=== PATIENT | male | born 1955 | race Caucasian/White ===

== ENCOUNTER 2017-12-17 01:53 | Emergency (ER) | payer BC ==
[2017-12-17] MEDS ORDERED: Lidocaine 2% Viscous Solution 15 ML Cup PO ONE (01:54)
[2017-12-17] MEDS ORDERED: Benzocaine 20% Topical Spray UD MUCMEM ONE (01:54)
--- NOTE | 2017-12-17 02:13 | EDM.PDOC ---
ED HPI GENERAL MEDICAL PROBLEM - General Chief Complaint: General Stated Complaint: TOOTH PAIN Time Seen by Provider: 12/17/17 01:56 - History of Present Illness INITIAL COMMENTS - FREE TEXT/NARRATIVE: HISTORY AND PHYSICAL: History of present illness: The patient is a 62-year-old male who presents with complaints of dental pain to his lower front teeth that started about 4-5 days ago and he scheduled an appointment with the dentist this Friday, 2-1/2 days from now. He presents because he is been taking [id number] ibuprofen and he says he can't take the pain. He feels that the gum is swollen and his glands in his neck are swollen and he is here for evaluation. The patient denies any systemic complaints of fever chills nausea vomiting headache or neck pain Review of systems: As per history of present illness and below otherwise all systems reviewed and negative. Past medical history: As per history of present illness and as reviewed below otherwise noncontributory. Surgical history: As per history of present illness and as reviewed below otherwise noncontributory. Social history: No reported history of drug or alcohol abuse. Family history: As per history of present illness and as reviewed below otherwise noncontributory. Physical exam: Gen.: Well-developed well-nourished man is nontoxic and vital signs were noted by me HEENT: Atraumatic, normocephalic, pupils reactive, negative for conjunctival pallor or scleral icterus, mucous membranes moist, throat clear, neck supple, nontender, trachea midline. There is no nuchal rigidity and there is some shoddy anterior cervical adenopathy. There is movable areas of dental disease and tooth loss the most noteworthy is near the right lower front teeth with dental disease at tooth #26 and swelling of the gum around where tooth 25 should be, although it is missing, tooth 26 and tooth 27. There is no facial swelling appreciated. Lungs: Clear to auscultation, breath sounds equal bilaterally, chest nontender. Heart: S1S2, regular rate and rhythm no overt murmurs Abdomen: Deferred Pelvis: Deferred Genitourinary: Deferred. Rectal: Deferred. Extremities: Atraumatic, full range of motion without defects or deficits. Neurovascular unremarkable. Neuro: Awake, alert, oriented. Cranial nerves II through XII unremarkable. Cerebellum unremarkable. Motor and sensory unremarkable throughout. Exam nonfocal. Diagnostics: [] Therapeutics: Dental balls Patient asked me for something nonnarcotic for pain and specifically requested ibuprofen 800 mg as he says this larger pill does not irritate his stomach as much as the [id number] ibuprofen does. I will also give dental balls and amoxicillin for home. Impression: Dental disease/dental pain/dental infection Definitive disposition and diagnosis as appropriate pending reevaluation and review of above. 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 [No Known Home Meds] 12/17/17 [History] ED ROS GENERAL - Review of Systems Review Of Systems: ROS reveals no pertinent complaints other than HPI. ED EXAM, GENERAL - Physical Exam Exam: See Below (See dictation) Course - Vital Signs Last Recorded V/S: Last Vital Signs Temp 36.7 C 12/17/17 02:03 Pulse 89 12/17/17 02:03 Resp 18 12/17/17 02:03 BP 153/86 H 12/17/17 02:03 Pulse Ox 96 12/17/17 02:03 - Orders/Labs/Meds Meds: Medications Discontinued Medications Generic Name Dose Route Start Last Admin Trade Name Buster PRN Reason Stop Dose Admin Benzocaine 2 each 12/17/17 01:54 Hurricaine One 20% MUCMEM 12/17/17 01:55 ONETIME ONE Lidocaine HCl 15 ml 12/17/17 01:54 Xylocaine 2% Viscous PO 12/17/17 01:55 ONETIME ONE Departure - Departure Time of Disposition: 02:12 Disposition: Home, Self-Care 01 Condition: Good Clinical Impression: Pain, dental, Dental infection - Discharge Information Referrals: PCP,None [Primary Care Provider] - Additional Instructions: The following information is given to patients seen in the emergency department who are being discharged to home. This information is to outline your options for follow-up care. We provide all patients seen in our emergency department with a follow-up referral. The need for follow-up, as well as the timing and circumstances, are variable depending upon the specifics of your emergency department visit. If you don't have a primary care physician on staff, we will provide you with a referral. We always advise you to contact your personal physician following an emergency department visit to inform them of the circumstance of the visit and for follow-up with them and/or the need for any referrals to a consulting specialist. The emergency department will also refer you to a specialist when appropriate. This referral assures that you have the opportunity for followup care with a specialist. All of these measure are taken in an effort to provide you with optimal care, which includes your followup. Under all circumstances we always encourage you to contact your private physician who remains a resource for coordinating your care. When calling for followup care, please make the office aware that this follow-up is from your recent emergency room visit. If for any reason you are refused follow-up, please contact the [facility] emergency department at and ask to speak to the emergency department charge nurse. [facility] Primary care- Internal Medicine and Family [address] [address] Use ice to face for any swelling that occurs and take medications as prescribed , ibuprofen 800 mg every 8 hours and amoxicillin as prescribed [facility] Meds. Please keep your appointment on Friday with the dentist and return to ER as needed and as discussed
== END 2017-12-17 02:30 | disposition home or self-care (01) ==
LOC: MW.ED 01:53
DX: K08.89 Other specified disorders of teeth and supporting structures (principal)
CPT/HCPCS: 99282; A9270

== ENCOUNTER 2018-04-07 19:43 | Emergency (ER) | payer BC ==
[2018-04-07] MEDS ORDERED: Ketorolac 60 MG/2 ML SDV IM ONE (20:14)
--- NOTE | 2018-04-07 20:31 | EDM.PDOC ---
ED HPI GENERAL MEDICAL PROBLEM - General Chief Complaint: General Stated Complaint: HAVEING PAIN IN HIS MOUTH Time Seen by Provider: 04/07/18 19:46 Source of Information: Reports: Patient History Limitations: Reports: No Limitations - History of Present Illness INITIAL COMMENTS - FREE TEXT/NARRATIVE: HISTORY AND PHYSICAL: History of present illness: [Carlos is a 63-year-old male here with complaint of dental pain. He reports he has had this before, needs to get some teeth pulled. He denies any fevers, chills, chest pain, headache, vomiting, diarrhea, abdominal pain. ] Review of systems: As per history of present illness and below otherwise all systems reviewed and negative. Past medical history: As per history of present illness and as reviewed below otherwise noncontributory. Surgical history: As per history of present illness and as reviewed below otherwise noncontributory. Social history: No reported history of drug or alcohol abuse. Family history: As per history of present illness and as reviewed below otherwise noncontributory. Physical exam: General: patient sitting comfortably in no acute distress HEENT: Poor dentition throughout. Tenderness to percussion of right upper 1st molar. Small abscess noted between 1st and 2nd molars. Atraumatic, normocephalic, pupils reactive, negative for conjunctival pallor or scleral icterus, mucous membranes moist, throat clear Lungs: Clear to auscultation, breath sounds equal bilaterally, chest nontender.er, trachea Heart: S1S2, regular, negative for clicks, rubs, or JVD. Neuro: Awake, alert, oriented. Cranial nerves II through XII unremarkable. Cerebellum unremarkable. Motor and sensory unremarkable throughout. Exam nonfocal. Notes: Diagnostics: [] Therapeutics: [Toradol 60mg IM] Amoxicillin Impression: [Dental abscess] Plan: [#1 Take antibiotic as directed #2 Take ibuprofen as needed for pain #3 Follow up with PCP #4 Return to ED as needed as discussed ] Definitive disposition and diagnosis as appropriate pending reevaluation and review of above. right upper and lower molar Pain Score (Numeric/FACES): 7 - Related Data Allergies Allergy/AdvReac Type Severity Reaction Status Date / Time No Known Allergies Allergy Verified 04/07/18 20:02 Home Meds: Home Meds Amoxicillin 500 mg PO TID 10 Days #30 tab 04/07/18 [Rx] Ibuprofen [Ibu] 800 mg PO Q6HR #20 tablet 04/07/18 [Rx] Past Medical History HEENT History: Reports: None Other HEENT History: wears glasses Cardiovascular History: Reports: None Respiratory History: Reports: Asthma Gastrointestinal History: Reports: None Genitourinary History: Reports: None Musculoskeletal History: Reports: None Neurological History: Reports: None Psychiatric History: Reports: Depression Endocrine/Metabolic History: Reports: None Hematologic History: Reports: None Immunologic History: Reports: None Oncologic (Cancer) History: Reports: None Dermatologic History: Reports: None - Infectious Disease History Infectious Disease History: Reports: Chicken Pox, Measles, Mumps - Past Surgical History Head Surgeries/Procedures: Reports: None HEENT Surgical History: Reports: None Respiratory Surgical History: Reports: None Musculoskeletal Surgical History: Reports: Other (See Below) Other Musculoskeletal Surgeries/Procedures:: Knee Surgery Social & Family History - Family History Family Medical History: Noncontributory - Tobacco Use Smoking Status *Q: Current Every Day Smoker Years of Tobacco use: 40 Packs/Tins Daily: 1 - Caffeine Use Caffeine Use: Reports: Coffee, Energy Drinks, Soda Caffeine Use Comment: "a lot" - Recreational Drug Use Recreational Drug Use: No ED ROS GENERAL - Review of Systems Review Of Systems: ROS reveals no pertinent complaints other than HPI. ED EXAM, GENERAL - Physical Exam Exam: See Below (see dictation) Course - Vital Signs Last Recorded V/S: Last Vital Signs Temp 36.4 C 04/07/18 19:55 Pulse 80 04/07/18 20:45 Resp 18 04/07/18 20:45 BP 140/80 04/07/18 20:45 Pulse Ox 98 04/07/18 20:45 - Orders/Labs/Meds Meds: Medications Discontinued Medications Generic Name Dose Route Start Last Admin Trade Name Freq PRN Reason Stop Dose Admin Ketorolac Tromethamine 60 mg 04/07/18 20:14 04/07/18 20:20 Toradol IM 04/07/18 20:15 60 mg ONETIME ONE Administration Departure - Departure Time of Disposition: 20:29 Disposition: Home, Self-Care 01 Condition: Good Clinical Impression: Pain, dental, Dental infection - Discharge Information Prescriptions: Ibuprofen [Ibu] 800 mg PO Q6HR #20 tablet Amoxicillin 500 mg PO TID 10 Days #30 tab Instructions: Dental Abscess, [id number] Referrals: PCP,None [Primary Care Provider] - Forms: ED Department Discharge Additional Instructions: The following information is given to patients seen in the emergency department who are being discharged to home. This information is to outline your options for follow-up care. We provide all patients seen in our emergency department with a follow-up referral. The need for follow-up, as well as the timing and circumstances, are variable depending upon the specifics of your emergency department visit. If you don't have a primary care physician on staff, we will provide you with a referral. We always advise you to contact your personal physician following an emergency department visit to inform them of the circumstance of the visit and for follow-up with them and/or the need for any referrals to a consulting specialist. The emergency department will also refer you to a specialist when appropriate. This referral assures that you have the opportunity for follow-up care with a specialist. All of these measure are taken in an effort to provide you with optimal care, which includes your follow-up. Under all circumstances we always encourage you to contact your private physician who remains a resource for coordinating your care. When calling for follow-up care, please make the office aware that this follow-up is from your recent emergency room visit. If for any reason you are refused follow-up, please contact the [facility] Emergency Department at and asked to speak to the emergency department charge nurse. [address] [address] #1 Take antibiotic as directed #2 Take ibuprofen as needed for pain #3 Follow up with PCP #4 Return to ED as needed as discussed
== END 2018-04-07 20:45 | disposition home or self-care (01) ==
LOC: MW.ED 19:43
DX: K04.7 Periapical abscess without sinus (principal); F17.210 Nicotine dependence, cigarettes, uncomplicated
CPT/HCPCS: 96372; 99282; J1885; 99283

== ENCOUNTER 2018-04-28 22:41 | Emergency (ER) | payer BC ==
--- NOTE | 2018-04-28 22:53 | EDM.PDOC ---
ED HPI GENERAL MEDICAL PROBLEM - General Stated Complaint: TOOTH PAIN Time Seen by Provider: 04/28/18 22:45 - History of Present Illness INITIAL COMMENTS - FREE TEXT/NARRATIVE: HISTORY AND PHYSICAL: History of present illness: Patient 63-year-old male presents with a concern of dentalgia he's been seen multiple times prior in the ED for the same is yet to secure dental appointment he denies fever chills nausea vomiting or other complaints Review of systems: As per history of present illness and below otherwise all systems reviewed and negative. Past medical history: As per history of present illness and as reviewed below otherwise noncontributory. Surgical history: As per history of present illness and as reviewed below otherwise noncontributory. Social history: No reported history of drug or alcohol abuse. Family history: As per history of present illness and as reviewed below otherwise noncontributory. Physical exam: HEENT: Generally poor dentition with multiple dental caries with secondary fractures gingival edema and multiple tooth loss Atraumatic, normocephalic, pupils reactive, negative for conjunctival pallor or scleral icterus, mucous membranes moist, throat clear, neck supple, nontender, trachea midline. Lungs: Clear to auscultation, breath sounds equal bilaterally, chest nontender. Heart: S1S2, regular, negative for clicks, rubs, or JVD. Abdomen: Soft, nondistended, nontender. Negative for masses or hepatosplenomegaly. Negative for costovertebral tenderness. Pelvis: Stable nontender. Genitourinary: Deferred. Rectal: Deferred. Extremities: Atraumatic, negative for cords or calf pain. Neurovascular unremarkable. Neuro: Awake, alert, oriented. Cranial nerves II through XII unremarkable. Cerebellum unremarkable. Motor and sensory unremarkable throughout. Exam nonfocal. Diagnostics: None Therapeutics: None Impression: #1 dentalgia #2 dental abscess Definitive disposition and diagnosis as appropriate pending reevaluation and review of above. - Related Data Allergies Allergy/AdvReac Type Severity Reaction Status Date / Time No Known Allergies Allergy Verified 04/07/18 20:02 Home Meds: Home Meds Amoxicillin 500 mg PO TID 10 Days #30 tab 04/07/18 [Rx] Ibuprofen [Ibu] 800 mg PO Q6HR #20 tablet 04/07/18 [Rx] Past Medical History HEENT History: Reports: None Other HEENT History: wears glasses Cardiovascular History: Reports: None Respiratory History: Reports: Asthma Gastrointestinal History: Reports: None Genitourinary History: Reports: None Musculoskeletal History: Reports: None Neurological History: Reports: None Psychiatric History: Reports: Depression Endocrine/Metabolic History: Reports: None Hematologic History: Reports: None Immunologic History: Reports: None Oncologic (Cancer) History: Reports: None Dermatologic History: Reports: None - Infectious Disease History Infectious Disease History: Reports: Chicken Pox, Measles, Mumps - Past Surgical History Head Surgeries/Procedures: Reports: None HEENT Surgical History: Reports: None Respiratory Surgical History: Reports: None Musculoskeletal Surgical History: Reports: Other (See Below) Other Musculoskeletal Surgeries/Procedures:: Knee Surgery Social & Family History - Family History Family Medical History: Noncontributory - Caffeine Use Caffeine Use: Reports: Coffee, Energy Drinks, Soda Caffeine Use Comment: "a lot" ED ROS GENERAL - Review of Systems Review Of Systems: ROS reveals no pertinent complaints other than HPI. ED EXAM, GENERAL - Physical Exam Exam: See Below (See dictation) Departure - Departure Time of Disposition: 22:51 Disposition: Home, Self-Care 01 Condition: Good Clinical Impression: Pain, dental, Dental infection - Discharge Information *PRESCRIPTION DRUG MONITORING PROGRAM REVIEWED*: Not Applicable *COPY OF PRESCRIPTION DRUG MONITORING REPORT IN PATIENT ROBERTA: Not Applicable Referrals: PCP,None [Primary Care Provider] - Additional Instructions: The following information is given to patients seen in the emergency department who are being discharged to home. This information is to outline your options for follow-up care. We provide all patients seen in our emergency department with a follow-up referral. The need for follow-up, as well as the timing and circumstances, are variable depending upon the specifics of your emergency department visit. If you don't have a primary care physician on staff, we will provide you with a referral. We always advise you to contact your personal physician following an emergency department visit to inform them of the circumstance of the visit and for follow-up with them and/or the need for any referrals to a consulting specialist. The emergency department will also refer you to a specialist when appropriate. This referral assures that you have the opportunity for followup care with a specialist. All of these measure are taken in an effort to provide you with optimal care, which includes your followup. Under all circumstances we always encourage you to contact your private physician who remains a resource for coordinating your care. When calling for followup care, please make the office aware that this follow-up is from your recent emergency room visit. If for any reason you are refused follow-up, please contact the [facility] emergency department at and asked to speak to the emergency department charge nurse. Augmentin Naprosyn as prescribed follow-up dentist as discussed return as needed as discussed
== END 2018-04-28 23:00 | disposition home or self-care (01) ==
LOC: MW.ED 22:41
DX: K04.7 Periapical abscess without sinus (principal)
CPT/HCPCS: 99282

== ENCOUNTER 2019-03-22 13:26 | Emergency (ER) | payer BC ==
[2019-03-22] MEDS ORDERED: Diphtheria,Pertussis(Acell),Tetanus Vaccine 0.5 ML Syringe IM ONE (14:00)
[2019-03-22] MEDS ORDERED: Lidocaine 1% with EPINEPHrine 1:100,000 20 ML MDV INJECT ONE (14:01)
[2019-03-22] MEDS ORDERED: Bacitracin Oint 1 GM U/D Packet ONE (14:06)
--- NOTE | 2019-03-22 14:07 | EDM.PDOC ---
ED HPI GENERAL MEDICAL PROBLEM - General Chief Complaint: Laceration Stated Complaint: CUT RT LEG Time Seen by Provider: 03/22/19 13:35 - History of Present Illness INITIAL COMMENTS - FREE TEXT/NARRATIVE: HISTORY AND PHYSICAL: History of present illness: Patient 63-year-old white male presents status post right leg injury when a chainsaw kicked back and hit him on the anterior aspect of his right leg he denies up-to-date tetanus he denies other trauma or concern Review of systems: As per history of present illness and below otherwise all systems reviewed and negative. Past medical history: As per history of present illness and as reviewed below otherwise noncontributory. Surgical history: As per history of present illness and as reviewed below otherwise noncontributory. Social history: No reported history of drug or alcohol abuse. Family history: As per history of present illness and as reviewed below otherwise noncontributory. Physical exam: HEENT: Atraumatic, normocephalic, pupils reactive, negative for conjunctival pallor or scleral icterus, mucous membranes moist, throat clear, neck supple, nontender, trachea midline. Lungs: Clear to auscultation, breath sounds equal bilaterally, chest nontender. Heart: S1S2, regular, negative for clicks, rubs, or JVD. Abdomen: Soft, nondistended, nontender. Negative for masses or hepatosplenomegaly. Negative for costovertebral tenderness. Pelvis: Stable nontender. Genitourinary: Deferred. Rectal: Deferred. Extremities: Patient has a laceration approximately 5 cm with some tissue avulsion and maceration anterior aspect of his mid right leg there is no gross deformity no obvious bony injury CMS neurovascular exam is unremarkable. Neuro: Awake, alert, oriented. Cranial nerves II through XII unremarkable. Cerebellum unremarkable. Motor and sensory unremarkable throughout. Exam nonfocal. Diagnostics: X-ray right tib-fib Therapeutics: Patient not since 1% line with epinephrine prepped and draped in sterile manner closed with 5-0 nylon interrupted suture bulky bacitracin dressing applied Impression: #1 acute injury right leg (laceration) Definitive disposition and diagnosis as appropriate pending reevaluation and review of above. right lower leg Pain Score (Numeric/FACES): 2 - Related Data Allergies Allergy/AdvReac Type Severity Reaction Status Date / Time No Known Allergies Allergy Verified 04/07/18 20:02 Home Meds: Home Meds . [No Known Home Meds] 03/22/19 [History] Past Medical History HEENT History: Reports: None Other HEENT History: wears glasses Cardiovascular History: Reports: None Respiratory History: Reports: Asthma Gastrointestinal History: Reports: None Genitourinary History: Reports: None Musculoskeletal History: Reports: Back Pain, Chronic Neurological History: Reports: None Psychiatric History: Reports: Depression Endocrine/Metabolic History: Reports: None Hematologic History: Reports: None Immunologic History: Reports: None Oncologic (Cancer) History: Reports: None Dermatologic History: Reports: None - Infectious Disease History Infectious Disease History: Reports: Chicken Pox, Measles, Mumps - Past Surgical History Head Surgeries/Procedures: Reports: None HEENT Surgical History: Reports: Oral Surgery Respiratory Surgical History: Reports: None Musculoskeletal Surgical History: Reports: Other (See Below) Other Musculoskeletal Surgeries/Procedures:: Knee Surgery Social & Family History - Family History Family Medical History: Noncontributory - Tobacco Use Smoking Status *Q: Current Every Day Smoker Years of Tobacco use: 16 Packs/Tins Daily: 1 - Caffeine Use Caffeine Use: Reports: Energy Drinks Caffeine Use Comment: "a lot" - Recreational Drug Use Recreational Drug Use: No ED ROS GENERAL - Review of Systems Review Of Systems: ROS reveals no pertinent complaints other than HPI. ED EXAM, SKIN/RASH Exam: See Below (Dictation) Course - Vital Signs Text/Narrative:: X-ray demonstrated a cortical injury to the anterior aspect of the tibia. He was irrigated with copious high-volume amounts of fluid I discussed case with orthopedic surgery will see patient tomorrow they do agree with closure Ancef intramuscularly and Keflex upon discharge patient understands high risk for infection and need for close follow-up including appointment with orthopedic surgery tomorrow he is to return as needed as discussed keeping leg elevated suture removal and follow-up as per orthopedic surgery return as needed as discussed Last Recorded V/S: Last Vital Signs Temp 36.0 C 03/22/19 13:35 Pulse 108 H 03/22/19 13:35 Resp 20 03/22/19 13:35 BP 122/83 03/22/19 13:35 Pulse Ox 96 03/22/19 13:35 - Orders/Labs/Meds Orders: Active Orders 24 hr Category Date Time Status Vaccines to be Administered [RC] PER UNIT ROUTINE Care 03/22/19 14:01 Active Meds: Medications Discontinued Medications Generic Name Dose Route Start Last Admin Trade Name Buster PRN Reason Stop Dose Admin Bacitracin Confirm 03/22/19 14:06 03/22/19 14:20 Bacitracin Oint 1 Gm Administered 03/22/19 14:07 Not Given Dose 1 dose .ROUTE .STK-MED ONE Bacitracin 1 dose 03/22/19 14:17 03/22/19 14:20 Bacitracin Oint 1 Gm TOP 03/22/19 14:18 1 dose ONETIME ONE Administration Cefazolin Sodium 1 gm 03/22/19 14:10 03/22/19 14:20 Ancef IM 03/22/19 14:11 1 gm ONETIME ONE Administration Diphtheria/Tetanus/Acell Pertussis 0.5 ml 03/22/19 14:00 03/22/19 14:19 Adacel IM 03/22/19 14:01 0.5 ml .ONCE ONE Administration Sodium Chloride Confirm 03/22/19 14:19 03/22/19 14:21 Normal Saline Administered 03/22/19 14:20 2.5 mls/hr Dose Administration 20 mls @ as directed .ROUTE .STK-MED ONE Lidocaine/Epinephrine 20 ml 03/22/19 14:01 03/22/19 14:20 Xylocaine 1% With Epinephrine 1:100,000 INJECT 03/22/19 14:02 20 ml ONETIME ONE Administration Departure - Departure Time of Disposition: 14:06 Disposition: Home, Self-Care 01 Clinical Impression: Leg injury - Discharge Information Referrals: PCP,None [Primary Care Provider] - Forms: ED Department Discharge Additional Instructions: The following information is given to patients seen in the emergency department who are being discharged to home. This information is to outline your options for follow-up care. We provide all patients seen in our emergency department with a follow-up referral. The need for follow-up, as well as the timing and circumstances, are variable depending upon the specifics of your emergency department visit. If you don't have a primary care physician on staff, we will provide you with a referral. We always advise you to contact your personal physician following an emergency department visit to inform them of the circumstance of the visit and for follow-up with them and/or the need for any referrals to a consulting specialist. The emergency department will also refer you to a specialist when appropriate. This referral assures that you have the opportunity for followup care with a specialist. All of these measure are taken in an effort to provide you with optimal care, which includes your followup. Under all circumstances we always encourage you to contact your private physician who remains a resource for coordinating your care. When calling for followup care, please make the office aware that this follow-up is from your recent emergency room visit. If for any reason you are refused follow-up, please contact the [facility] emergency department at and asked to speak to the emergency department charge nurse. [facility] - Orth[facility] Professional [address], [address] [place] [address] Follow-up orthopedic clinic tomorrow call in a.m. for appointment Keflex as prescribed elevation as directed Motrin/Tylenol as directed and return as needed as discussed - My Orders Last 24 Hours: My Active Orders 03/22/19 14:01 Vaccines to be Administered [RC] PER UNIT ROUTINE - Assessment/Plan Last 24 Hours: My Active Orders 03/22/19 14:01 Vaccines to be Administered [RC] PER UNIT ROUTINE
[2019-03-22] MEDS ORDERED: ceFAZolin 1 GM Vial IM ONE (14:10)
[2019-03-22] MEDS ORDERED: Bacitracin Oint 1 GM U/D Packet TOP ONE (14:17)
[2019-03-22] MEDS ORDERED: Sodium Chloride 0.9% 20 ML ONE (14:19)
--- NOTE | 2019-03-22 14:35 | CR ---
EXAMINATION: Right tibia and fibula HISTORY: Pain COMPARISON: None TECHNIQUE: 2 views FINDINGS/IMPRESSION: Tiny cortical defects are noted along the anterior aspect of the tibia with overlying soft tissue swelling and likely laceration. Otherwise the visualized osseous structures and joint spaces appear intact. Early degenerative changes noted within the knee.
== END 2019-03-22 14:56 | disposition home or self-care (01) ==
LOC: MW.ED 13:26
DX: S81.811A Laceration without foreign body, right lower leg, initial encounter (principal); Z23 Encounter for immunization; F17.210 Nicotine dependence, cigarettes, uncomplicated; W29.3XXA Contact with powered garden and outdoor hand tools and machinery, initial encounter
CPT/HCPCS: 12002; 73590; 90471; 90715; 96372; 99283; J0690; 99282

== ENCOUNTER 2019-04-14 14:02 | Day surgery (SDC) | payer BC ==
[~2019-04-14 14:02] MED LIST: Lactated Ringers 1,000 ML IV SCH; Levofloxacin/Dextrose 5%-Water 750 MG in Premix Bag 1 BAG IV ONE
--- NOTE | 2019-04-14 14:53 | PCM.PREANE ---
Preanesthetic Assessment - Anesthesia/Transfusion/Family Hx Anesthesia History: Prior Anesthesia Without Reaction Family History of Anesthesia Reaction: No Transfusion History: No Prior Transfusion(s) - Review of Systems General: No Symptoms Pulmonary: No Symptoms Cardiovascular: No Symptoms Gastrointestinal: No Symptoms Neurological: No Symptoms Other: Reports: None - Physical Assessment NPO Status Date: 04/13/19 NPO Status Time: 22:00 Height: 5 ft 7 in Weight: 80.739 kg ASA Class: 2 Mental Status: Alert & Oriented x3 Airway Class: Mallampati = 4 Dentition: Reports: Dentures (Full upper and lower) Thyro-Mental Finger Breadths: 2 Mouth Opening Finger Breadths: 2 ROM/Head Extension: Limited/Partial Lungs: Clear to Auscultation, Normal Respiratory Effort Cardiovascular: Regular Rate, Regular Rhythm - Allergies Allergies/Adverse Reactions: Allergies Allergy/AdvReac Type Severity Reaction Status Date / Time No Known Allergies Allergy Verified 04/14/19 11:14 - Acknowledgements Anesthesia Type Planned: General Anesthesia Pt an Appropriate Candidate for the Planned Anesthesia: Yes Alternatives and Risks of Anesthesia Discussed w Pt/Guardian: Yes Pt/Guardian Understands and Agrees with Anesthesia Plan: Yes PreAnesthesia Questionnaire HEENT History: Reports: Other (See Below) Other HEENT History: has upper and lower dentures, hx of fx nose Cardiovascular History: Reports: None Respiratory History: Reports: Asthma, Sleep Apnea Other Respiratory History: does not use a CPAP, hx of asthma, no symptoms of inhaler for 10 years Gastrointestinal History: Reports: Other (See Below) Other Gastrointestinal History: occasional heartburn- takes OTC meds Genitourinary History: Reports: None Musculoskeletal History: Reports: Fracture Other Musculoskeletal History: current fx right tibia Neurological History: Reports: None Psychiatric History: Reports: Depression Endocrine/Metabolic History: Reports: None Hematologic History: Reports: None Immunologic History: Reports: None Oncologic (Cancer) History: Reports: None Dermatologic History: Reports: Other (See Below) Other Dermatologic History: current open wound on right khan - Infectious Disease History Infectious Disease History: Reports: Chicken Pox, Measles, Mumps - Past Surgical History Musculoskeletal Surgical History: Reports: Arthroscopic Knee - SUBSTANCE USE Smoking Status *Q: Current Every Day Smoker Tobacco Use Within Last Twelve Months: Cigarettes Recreational Drug Use History: No - HOME MEDS Home Medications: Home Meds Ciprofloxacin HCl [Cipro] 500 mg PO BID 04/14/19 [History] Ibuprofen 800 mg PO ASDIRECTED PRN 04/14/19 [History] - CURRENT (IN HOUSE) MEDS Current Meds: Current Medications Hydrocodone Bitart/Acetaminophen ([place] 325-5 Mg) 1 - 2 tab PO Q4H PRN PRN Reason: Pain Lactated Ringer's (Ringers, Lactated) 1,000 mls @ 100 mls/hr IV ASDIRECTED INDRA Levofloxacin (Levaquin) 750 mg PO Q24H [facility] Stop: 04/21/19 08:01 Discontinued Medications Levofloxacin/Dextrose 750 mg/ (Premix) 150 mls @ 100 mls/hr IV ONETIME ONE Stop: 04/14/19 12:38
[2019-04-14] MEDS ORDERED: Acetaminophen/HYDROcodone 325-5 MG Tab PO PRN (15:00)
[2019-04-14] MEDS ORDERED: Levofloxacin/Dextrose 5%-Water 750 MG in Premix Bag 1 BAG IV ONE (15:15)
[2019-04-14] MEDS ORDERED: Propofol 200 MG/20 ML SDV ONE (17:43)
[2019-04-14] MEDS ORDERED: Midazolam 1 MG/ML 2 ML SDV ONE (17:43)
[2019-04-14] MEDS ORDERED: fentaNYL 100 MCG/2 ML SDV ONE (17:43)
[2019-04-14] MEDS ORDERED: Dexamethasone 4 MG/ML 5 ML MDV ONE (18:23)
[2019-04-14] MEDS ORDERED: Ondansetron 4 MG/2 ML SDV ONE (18:23)
[2019-04-14] MEDS ORDERED: Ketorolac 30 MG/ML SDV ONE (19:03)
[2019-04-14] MEDS ORDERED: fentaNYL 100 MCG/2 ML SDV IVPUSH PRN (19:08)
[2019-04-14] MEDS ORDERED: HYDROmorphone 2 MG/ML SDV IVPUSH ONE (19:09)
--- NOTE | 2019-04-14 19:26 | PCM.OPNOTE ---
- General Post-Op/Procedure Note Date of Surgery/Procedure: 04/14/19 Operative Procedure(s): ED Right open tibia fracture to bone Post-Op Diagnosis: R open tibia fracture with superficial wound infection Anesthesia Technique: General LMA Primary Surgeon: Elana Tristan Plunger Machine Operator: Grisel Mejia in mLs: 5 Condition: Good Free Text/Narrative:: tt=0 min #[id number]
--- NOTE | 2019-04-14 23:50 | OR ---
SURGEON: Elana Tristan MD DATE OF PROCEDURE: 04/14/2019 PREOPERATIVE DIAGNOSIS: Right open tibia fracture with superficial wound infection. POSTOPERATIVE DIAGNOSIS: Right open tibia fracture with superficial wound infection. PROCEDURE PERFORMED: Excisional debridement right open tibia fracture to bone. SOLAR DEVELOPMENT ENGINEER: VALENTINE Freitas. ANESTHESIA: General. ESTIMATED BLOOD LOSS: 5 mL. TOURNIQUET TIME: 0 minutes. COMPLICATIONS: None. DVT PROPHYLAXIS: Not indicated. IMPLANTS USED: None. BRIEF HISTORY: Carlos is a 64-year-old male who sustained a right open tibia fracture when he struck the anterior aspect of his low leg with a chainsaw. This was treated with debridement in the emergency room and he was started on antibiotics. We have continued to follow him in the clinic. He has showed nonunion with some mild erythema surrounding the wound site. At that time, I recommended excisional debridement in the operating room. The risks and goals of the procedure were discussed with the patient and were documented preoperatively. He agreed to proceed. DESCRIPTION OF PROCEDURE: The patient was properly identified and brought to the operating room. He was transferred from the OR cart and placed on the operating table in supine position. General anesthesia was administered. After adequate anesthesia was obtained, the right lower extremity was prepped in standard fashion using Betadine solution. It was then sterilely draped. A time-out was performed to ensure correct site and procedure. Preoperative antibiotics were given. The surgical site had been marked preoperatively. The wound was inspected. It measured approximately 6 cm x 2 cm. There was some fibrinous exudate present within the wound bed. The wound edges appeared quite mobile. I did use a scalpel to freshen the wound edges. The base of the wound was then debrided. The skin was able to be reapproximated to cover the open wound. The wound was then copiously irrigated with saline solution using a [employer] senior ui software engineer. 6 L of normal saline was irrigated through the wound. At the completion, the tissues appeared quite good. Using 2-0 and 3-0 nylon, the wound edges were reapproximated. We were able to completely close the wound without unnecessary tension on the skin edges. Xeroform gauze was then placed over the wound and a bulky dressing was applied. He was awakened from his anesthetic and transferred back to the operating room cart. He was brought to recovery room in stable condition. All needle and sponge counts were correct. SEN / MELISSA /[id number]
--- NOTE | 2019-04-15 06:57 | PCM48HPAN ---
Post Anesthesia Note - EVALUATION WITHIN 48HRS OF ANESTHETIC Vital Signs in Normal Range: Yes Patient Participated in Evaluation: Yes Respiratory Function Stable: Yes Airway Patent: Yes Cardiovascular Function Stable: Yes Hydration Status Stable: Yes Pain Control Satisfactory: Yes Nausea and Vomiting Control Satisfactory: Yes Mental Status Recovered: Yes Resp Rate: 15 - COMMENTS/OBSERVATIONS Free Text/Narrative:: no anesthesia problems
[2019-04-15] MEDS ORDERED: Levofloxacin 250 MG Tab PO SCH (08:00)
== END 2019-04-15 01:10 | disposition home or self-care (01) ==
LOC: MW.SDS 14:02 → MW.MS 20:30 → MW.SDS 04-15 01:10
PROVIDERS: ATTEND Orthopaedic Surgery
DX: S82.201M Unspecified fracture of shaft of right tibia, subsequent encounter for open fracture type I or II with nonunion (principal); J45.909 Unspecified asthma, uncomplicated; G47.30 Sleep apnea, unspecified; R12 Heartburn; F17.210 Nicotine dependence, cigarettes, uncomplicated; Z79.899 Other long term (current) drug therapy; W29.3XXA Contact with powered garden and outdoor hand tools and machinery, initial encounter
CPT/HCPCS: 11010; A4217; A9270; J1100; J1885; J1956; J2001; J2250; J2405; J2704; J3010; J7120

== ENCOUNTER 2023-06-01 22:58 | Observation (INO) | payer MEDICARE, OTHER ==
[2023-06-01] MEDS ORDERED: Sodium Chloride 0.9% 1,000 ML IV ONE (23:16)
[2023-06-01] MEDS ORDERED: Sodium Chloride 0.9% 2.5 ML Syringe FLUSH PRN (23:16)
[2023-06-01] MEDS ORDERED: Sodium Chloride 0.9% 10 ML Syringe FLUSH PRN (23:16)
[2023-06-01 23:38] LABS: BASOPHILS ABSOLUTE AUTO 0.1 K/uL (0.0-0.1); BASOPHILS PERCENT AUTO 0.9 % (0.0-1.5); EOSINOPHILS ABSOLUTE AUTO 0.5 K/uL (0.0-0.7); EOSINOPHILS PERCENT AUTO 5.1 % (0.0-7.0); HEMATOCRIT 45.2 % (38.0-50.0); LYMPHOCYTES PERCENT AUTO 44.8 % (16.0-40.0); MEAN CORPUSCULAR HEMOGLOBIN 35.3 pg (27.0-32.0); MEAN CORPUSCULAR HGB CONC 35.4 g/dL (31.0-37.0); MEAN CORPUSCULAR VOLUME 99.8 fL (80.0-98.0); MONOCYTES ABSOLUTE AUTO 0.7 K/uL (0.0-0.8); MONOCYTES PERCENT AUTO 7.7 % (0.0-15.0); NEUTROPHILS ABSOLUTE AUTO 3.7 K/uL (1.4-5.7); NEUTROPHILS PERCENT AUTO 41.5 % (48.0-80.0); NRBC ABSOLUTE 0 K/uL; PLATELET COUNT,PLT 256 K/uL (150-400); RED BLOOD CELL COUNT 4.53 M/uL (4.50-5.90); WHITE BLOOD CELL COUNT,WBC 8.91 K/uL (4.0-11.0)
[2023-06-01 23:50] LABS: A/G RATIO 1.3 (0.9-1.6); ALBUMIN 4.1 g/dL (3.4-5.0); BILIRUBIN TOTAL 0.5 mg/dL (0.2-1.0); CALCIUM 8.3 mg/dL (8.5-10.1); CARBON DIOXIDE,CO2 25.1 mmol/L (21.0-32.0); CREATININE 1.1 mg/dL (0.8-1.3); EST CRCL DRUG DOSING (CG) 61.76 mL/min; POTASSIUM,K 3.9 mmol/L (3.5-5.1); PROTEIN TOTAL,TP 7.3 g/dL (6.4-8.2)
[2023-06-02 00:08] LABS: APPEARANCE,URINE CLEAR; BILIRUBIN,URINE NEGATIVE (NEGATIVE); COLOR,URINE YELLOW; GLUCOSE,URINE NEGATIVE (NEGATIVE); KETONES,URINE NEGATIVE (NEGATIVE); LEUKOCYTE ESTERASE,URINE NEGATIVE (NEGATIVE); NITRITE,URINE NEGATIVE (NEGATIVE); OCCULT BLOOD,URINE NEGATIVE (NEGATIVE); PH,URINE 5.5 (5.0-8.0); PROTEIN,URINE NEGATIVE (NEGATIVE); UROBILINOGEN,URINE 0.2 EU/dL (<2.0)
[2023-06-02 07:09] LABS: BASOPHILS ABSOLUTE AUTO 0.1 K/uL (0.0-0.1); EOSINOPHILS ABSOLUTE AUTO 0.5 K/uL (0.0-0.7); EOSINOPHILS PERCENT AUTO 5.8 % (0.0-7.0); HEMATOCRIT 43.5 % (38.0-50.0); HEMOGLOBIN 15.1 g/dL (13.0-17.0); LYMPHOCYTES ABSOLUTE AUTO 3.4 K/uL (0.6-2.4); LYMPHOCYTES PERCENT AUTO 41.9 % (16.0-40.0); MEAN CORPUSCULAR HEMOGLOBIN 34.9 pg (27.0-32.0); MEAN CORPUSCULAR HGB CONC 34.7 g/dL (31.0-37.0); MEAN CORPUSCULAR VOLUME 100.5 fL (80.0-98.0); MONOCYTES ABSOLUTE AUTO 0.5 K/uL (0.0-0.8); MONOCYTES PERCENT AUTO 6.6 % (0.0-15.0); NEUTROPHILS ABSOLUTE AUTO 3.6 K/uL (1.4-5.7); NEUTROPHILS PERCENT AUTO 44.7 % (48.0-80.0); NRBC ABSOLUTE 0 K/uL; PLATELET COUNT,PLT 230 K/uL (150-400); RED BLOOD CELL COUNT 4.33 M/uL (4.50-5.90); WHITE BLOOD CELL COUNT,WBC 8.13 K/uL (4.0-11.0)
[2023-06-02 07:33] LABS: CALCIUM 8.4 mg/dL (8.5-10.1); CREATININE 0.9 mg/dL (0.8-1.3); EST CRCL DRUG DOSING (CG) 75.48 mL/min; POTASSIUM,K 4.4 mmol/L (3.5-5.1)
[2023-06-02] MEDS: Aspirin 325 MG Tab PO SCH (10:27)
[2023-06-02] MEDS: Clopidogrel 75 MG Tab PO SCH (10:28)
[2023-06-02] MEDS ORDERED: LORazepam 2 MG/ML SDV IVPUSH ONE (11:06)
[2023-06-02] MEDS ORDERED: Iopamidol 755 MG/ML 500 ML Multipack Bottle IVPUSH STA (12:41)
[2023-06-02] MEDS ORDERED: Enoxaparin 40 MG/0.4 ML Syringe SUBCUT SCH (16:45)
[2023-06-02] MEDS ORDERED: atorvaSTATin 40 MG Tab PO SCH (21:00)
[2023-06-03 06:30] LABS: BASOPHILS ABSOLUTE AUTO 0.1 K/uL (0.0-0.1); BASOPHILS PERCENT AUTO 0.8 % (0.0-1.5); EOSINOPHILS ABSOLUTE AUTO 0.4 K/uL (0.0-0.7); EOSINOPHILS PERCENT AUTO 6.1 % (0.0-7.0); HEMATOCRIT 43.4 % (38.0-50.0); HEMOGLOBIN 14.9 g/dL (13.0-17.0); LYMPHOCYTES ABSOLUTE AUTO 2.8 K/uL (0.6-2.4); LYMPHOCYTES PERCENT AUTO 44.3 % (16.0-40.0); MEAN CORPUSCULAR HEMOGLOBIN 34.5 pg (27.0-32.0); MEAN CORPUSCULAR HGB CONC 34.3 g/dL (31.0-37.0); MEAN CORPUSCULAR VOLUME 100.5 fL (80.0-98.0); MONOCYTES ABSOLUTE AUTO 0.6 K/uL (0.0-0.8); MONOCYTES PERCENT AUTO 9.6 % (0.0-15.0); NEUTROPHILS ABSOLUTE AUTO 2.5 K/uL (1.4-5.7); NEUTROPHILS PERCENT AUTO 39.2 % (48.0-80.0); NRBC ABSOLUTE 0 K/uL; PLATELET COUNT,PLT 215 K/uL (150-400); RED BLOOD CELL COUNT 4.32 M/uL (4.50-5.90); WHITE BLOOD CELL COUNT,WBC 6.25 K/uL (4.0-11.0)
[2023-06-03 06:52] LABS: ALBUMIN 3.2 g/dL (3.4-5.0); BILIRUBIN TOTAL 0.4 mg/dL (0.2-1.0); CALCIUM 8.3 mg/dL (8.5-10.1); CREATININE 0.9 mg/dL (0.8-1.3); EST CRCL DRUG DOSING (CG) 75.48 mL/min; POTASSIUM,K 4.6 mmol/L (3.5-5.1); PROTEIN TOTAL,TP 6.3 g/dL (6.4-8.2)
[2023-06-03] MEDS: Aspirin 325 MG Tab PO SCH (09:47)
[2023-06-03] MEDS: Clopidogrel 75 MG Tab PO SCH (09:47)
== END 2023-06-03 13:00 | disposition home or self-care (01) ==
LOC: MW.ED 22:58 → MW.MS 06-02 01:09
PROVIDERS: ADMIT Internal Medicine; ATTEND Internal Medicine
DX: R53.1 Weakness (principal); R20.0 Anesthesia of skin; R20.2 Paresthesia of skin; F32.A Depression, unspecified; J45.909 Unspecified asthma, uncomplicated; F41.9 Anxiety disorder, unspecified; G47.30 Sleep apnea, unspecified; F17.210 Nicotine dependence, cigarettes, uncomplicated; Z98.890 Other specified postprocedural states; Z79.899 Other long term (current) drug therapy
CPT/HCPCS: 36415; 70450; 70496; 70498; 70551; 71045; 80048; 80053; 80061; 81003; 83036; 84484; 85025; 93005; 93306; 96372; 99285; A9270; G0378; J1650; J2060; J3490; J7030; Q9967; 82947; 93010; 99283